=== PATIENT | female | born 1965 | race Caucasian/White ===

== ENCOUNTER 2021-07-12 12:39 | Emergency (ER) | payer MEDICARE, MEDICAID ==
[~2021-07-12] VITALS: Ht 157.5 cm; Wt 81.8 kg
[~2021-07-12 12:39] MED LIST: ASPI-1 PO; BUPR300T53 PO; TRAM50TA2 PO; [UNRECOGNIZED DRUG - CODE] PO
[2021-07-12 12:40] VITALS: BP 130/78
[2021-07-12] MEDS ORDERED: DOXY100C76 PO (14:10)
[2021-07-12] MEDS ORDERED: NAPR-56 PO (14:10)
== END 2021-07-12 14:27 | disposition home or self-care (01) ==
LOC: ER 12:39
DX: K02.9 Dental caries, unspecified (principal); K08.89 Other specified disorders of teeth and supporting structures; R41.0 Disorientation, unspecified; G89.29 Other chronic pain; Z88.0 Allergy status to penicillin; Z88.2 Allergy status to sulfonamides; Z79.82 Long term (current) use of aspirin; Z79.2 Long term (current) use of antibiotics; Z79.899 Other long term (current) drug therapy
CPT/HCPCS: 99283

== ENCOUNTER 2021-09-14 04:54 | Emergency (ER) | payer MEDICARE, MEDICAID ==
[~2021-09-14] VITALS: Ht 157.5 cm; Wt 84.1 kg
[2021-09-14 05:29] LABS: BASOPHILS # (AUTO) 0.1 X10'3 (0-0.2); BASOPHILS % (AUTO) 1.2 % (0-1); EOSINOPHILS # (AUTO) 0.1 X10'3 (0-0.9); EOSINOPHILS % (AUTO) 2.4 % (0-6); HEMATOCRIT 39.4 % (35.0-45.0); HEMOGLOBIN 13.3 g/dl (12.0-16.0); LYMPHOCYTES % (AUTO) 37.5 % (21-51); MEAN CORPUSCULAR HEMOGLOBIN 30.3 PG (27.0-31.0); MEAN CORPUSCULAR HGB CONC 33.7 g/dL (33.0-36.5); MEAN CORPUSCULAR VOLUME 90.1 FL (78-98); MEAN PLATELET VOLUME 7.8 FL (7.4-10.4); MONOCYTES # (AUTO) 0.5 X10'3 (0-0.9); MONOCYTES % (AUTO) 9.1 % (2-12); NEUTROPHILS # (AUTO) 2.7 X10'3 (1.8-7.7); NEUTROPHILS % (AUTO) 49.8 % (42-75); PLATELET COUNT 285 X10'3 (140-440); RED BLOOD COUNT 4.38 X10'6 (4.20-5.60); RED CELL DISTRIBUTION WIDTH 14.6 % (11.5-14.5); WHITE BLOOD COUNT 5.4 X10'3 (4.5-11.0)
[2021-09-14 05:43] LABS: ANION GAP 8 (8-16); BLOOD UREA NITROGEN 25 MG/DL (7-18); BUN/CREATININE RATIO 31.3 (6.6-38.0); CHLORIDE 109 MMOL/L (99-107); GLUCOSE 76 MG/DL (70-104); POTASSIUM 4.2 MMOL/L (3.5-5.1); SODIUM 142 MMOL/L (135-145); TOTAL CARBON DIOXIDE 24.7 MMOL/L (24-32)
[2021-09-14 05:44] LABS: ALANINE AMINOTRANSFERASE 34 U/L (12-78); ALBUMIN 3.2 G/DL (3.4-5.0); ALBUMIN/GLOBULIN RATIO 0.9 (1.1-1.5); ALKALINE PHOSPHATASE 67 IU/L (46-116); ASPARTATE AMINO TRANSFERASE 29 U/L (10-37); BILIRUBIN,TOTAL 0.2 MG/DL (0.1-1.0); CALCIUM 8.5 MG/DL (8.5-10.1); TOTAL PROTEIN 6.9 G/DL (6.4-8.2); eGFR 74 ML/MIN
[2021-09-14 05:49] LABS: MAGNESIUM 2.1 MG/DL (1.5-2.4)
[2021-09-14] MEDS ORDERED: normal saline 1000ml 1,000 ML IV ONE (05:55)
[2021-09-14 07:25] VITALS: BP 131/80
== END 2021-09-14 07:31 | disposition home or self-care (01) ==
LOC: ER 04:54
DX: R07.89 Other chest pain (principal); R42 Dizziness and giddiness; G89.29 Other chronic pain; F17.200 Nicotine dependence, unspecified, uncomplicated; Z88.0 Allergy status to penicillin; Z88.2 Allergy status to sulfonamides; Z79.82 Long term (current) use of aspirin; Z79.899 Other long term (current) drug therapy
CPT/HCPCS: 36415; 71045; 80053; 83735; 83880; 84484; 85025; 85610; 93005; 96360; 99285; J7030

== ENCOUNTER 2022-09-02 11:25 | Emergency (ER) | payer MEDICARE, MEDICAID ==
[~2022-09-02] VITALS: Ht 157.5 cm; Wt 81.8 kg
[2022-09-02 11:31] VITALS: BP 154/91
[2022-09-02] MEDS ORDERED: CYCL-1 PO (13:04)
[2022-09-02] MEDS ORDERED: IBUP-1986 PO (13:04)
[2022-09-02] MEDS ORDERED: cyclobenzaprine 10mg tablet PO ONE (13:05)
[2022-09-02] MEDS ORDERED: ketorolac trometh. 30mg/ml inj. IM ONE (13:05)
== END 2022-09-02 13:28 | disposition home or self-care (01) ==
LOC: ER 11:25
DX: S06.0X0A Concussion without loss of consciousness, initial encounter (principal); G89.29 Other chronic pain; F41.9 Anxiety disorder, unspecified; Z88.0 Allergy status to penicillin; Z79.899 Other long term (current) drug therapy; Z88.2 Allergy status to sulfonamides; W22.8XXA Striking against or struck by other objects, initial encounter; Y93.89 Activity, other specified; Y92.89 Other specified places as the place of occurrence of the external cause; Y99.8 Other external cause status
CPT/HCPCS: 70450; 96372; 99285; J1885

== ENCOUNTER 2022-09-16 05:53 | Emergency (ER) | payer MEDICARE, MEDICAID ==
[~2022-09-16] VITALS: Ht 157.5 cm; Wt 85.0 kg
[~2022-09-16 05:53] MED LIST changes: +CYCL-1 PO; +IBUP-1986 PO
[2022-09-16] MEDS ORDERED: meclizine 12.5mg tablet PO ONE (06:35)
[2022-09-16] MEDS ORDERED: LORazepam 1 MG tablet PO ONE (06:35)
[2022-09-16] MEDS ORDERED: ondansetron 4mg rapidly disintigrating tab PO ONE (06:35)
[2022-09-16 07:15] LABS: BASOPHILS # (AUTO) 0.1 X10'3 (0-0.2); BASOPHILS % (AUTO) 1.1 % (0-1); EOSINOPHILS # (AUTO) 0.1 X10'3 (0-0.9); EOSINOPHILS % (AUTO) 2.1 % (0-6); HEMATOCRIT 40.9 % (35.0-45.0); HEMOGLOBIN 13.9 g/dl (12.0-16.0); LYMPHOCYTES # (AUTO) 1.7 X10'3 (1.1-4.8); LYMPHOCYTES % (AUTO) 30.3 % (21-51); MEAN CORPUSCULAR HEMOGLOBIN 30.8 PG (27.0-31.0); MEAN CORPUSCULAR VOLUME 90.5 FL (78-98); MEAN PLATELET VOLUME 7.8 FL (7.4-10.4); MONOCYTES # (AUTO) 0.5 X10'3 (0-0.9); MONOCYTES % (AUTO) 8.6 % (2-12); NEUTROPHILS # (AUTO) 3.3 X10'3 (1.8-7.7); NEUTROPHILS % (AUTO) 57.9 % (42-75); PLATELET COUNT 291 X10'3 (140-440); RED BLOOD COUNT 4.51 X10'6 (4.20-5.60); RED CELL DISTRIBUTION WIDTH 14.3 % (11.5-14.5); WHITE BLOOD COUNT 5.6 X10'3 (4.5-11.0)
[2022-09-16 07:19] LABS: CLARITY,URINE CLEAR (Clear); COLOR,URINE STRAW (Yellow); GLUCOSE, URINE NEGATIVE (Neg); KETONES,URINE NEGATIVE (Neg); LEUKOCYTE ESTERASE ,URINE NEGATIVE (Neg); NITRITES, URINE NEGATIVE (Neg); OCCULT BLOOD,URINE NEGATIVE (Neg); PROTEIN,URINE NEGATIVE (Neg); UROBILINOGEN,URINE 0.2 E.U/dL (0.2-1.0)
[2022-09-16 07:21] LABS: UA COLLECTION TYPE VOIDED
[2022-09-16 07:24] LABS: ALANINE AMINOTRANSFERASE 37 U/L (12-78); ALBUMIN 3.5 G/DL (3.4-5.0); ALBUMIN/GLOBULIN RATIO 0.9 (1.1-1.5); ALKALINE PHOSPHATASE 79 IU/L (46-116); ANION GAP 7 (8-16); ASPARTATE AMINO TRANSFERASE 26 U/L (10-37); BILIRUBIN,TOTAL 0.3 MG/DL (0.1-1.0); BLOOD UREA NITROGEN 19 MG/DL (7-18); BUN/CREATININE RATIO 21.8 (10.0-20.0); CALCIUM 8.8 MG/DL (8.5-10.1); CHLORIDE 106 MMOL/L (99-107); CREATININE 0.87 MG/DL (0.40-0.90); GLUCOSE 94 MG/DL (70-104); POTASSIUM 4.6 MMOL/L (3.5-5.1); SODIUM 139 MMOL/L (135-145); TOTAL CARBON DIOXIDE 25.7 MMOL/L (24-32); TOTAL PROTEIN 7.2 G/DL (6.4-8.2); eGFR 67 ML/MIN
[2022-09-16 08:53] VITALS: BP 129/76
[2022-09-16] MEDS ORDERED: MECL-159 PO (09:32)
[2022-09-16] MEDS ORDERED: ONDA4TAB12 PO (09:32)
== END 2022-09-16 10:09 | disposition home or self-care (01) ==
LOC: ER 05:54
DX: R42 Dizziness and giddiness (principal); F07.81 Postconcussional syndrome; Z88.0 Allergy status to penicillin; Z88.2 Allergy status to sulfonamides
CPT/HCPCS: 36415; 71045; 72125; 80053; 81003; 85025; 93005; 99285; J8597

== ENCOUNTER 2023-06-14 10:30 | Emergency (ER) | payer MEDICARE, MEDICAID ==
[~2023-06-14] VITALS: Ht 157.5 cm; Wt 96.6 kg
[~2023-06-14 10:30] MED LIST changes: +MECL-302 PO; +ONDA4TAB12 PO
[2023-06-14 10:51] VITALS: TEMP 98.1
[2023-06-14 11:14] VITALS: BP 123/68; PULSE 82; RESP 17; O2SAT 99
[2023-06-14] MEDS: erythromycin ophthalmic ointment 1gm tube EACHEYE ONE (11:38)
[2023-06-14] MEDS: proparacaine 0.5% ophthalmic drops 15ml EACHEYE ONE (11:38)
[2023-06-14] MEDS ORDERED: ERYT1OIN6 RIGHTEYE (11:56)
== END 2023-06-14 12:11 | disposition home or self-care (01) ==
LOC: ER 10:30
DX: S05.01XA Injury of conjunctiva and corneal abrasion without foreign body, right eye, initial encounter (principal); F41.9 Anxiety disorder, unspecified; X58.XXXA Exposure to other specified factors, initial encounter; Y93.89 Activity, other specified; Y92.89 Other specified places as the place of occurrence of the external cause; Y99.8 Other external cause status
CPT/HCPCS: 99283